=== PATIENT | male | born 1965 | race Caucasian/White ===

== ENCOUNTER 2019-02-14 23:15 | Emergency (ER) | payer MEDICAID ==
[2019-02-14 23:27] VITALS: BP 145/96
--- NOTE | 2019-02-14 23:49 | ER Report ---
History and Physical Time Seen By MD: 23:40 Hx. of Stated Complaint: PT REPORTS BEING BLOATED FOR SEVERAL WEEKS. HPI/ROS CHIEF COMPLAINT: bloating HISTORY OF PRESENT ILLNESS: This is a 54 year old male. He has been having stomach bloating for weeks now. The last few months, has had bloating feeling off and on, seeming to worsen with distension as well. No real pain, but is uncomfortable. Lots of belching and gas. Normal bowels which are usually a little constipated. Has normal urination. No blood in urine or stool. Frequent acid reflux feelings. Normal breathing and no chest pain. Has no insurance and no doctor so has not been evaluated for this. No history of ulcer disease. No medication. The only other complaint that he has is a broken tooth upper right premolar that is irritated. Denies history of abdominal surgeries or colonoscopies. Allergies: Coded Allergies: No Known Drug Allergies (Unverified , 02/14/19) Home Meds Active Scripts Omeprazole (OMEPRAZOLE) 20 Mg Capsule.dr, 1 CAP PO BID, #28 CAP 0 Refills Prov:ONEYDA BLOOM MD 02/15/19 Amoxicillin (AMOXICILLIN) 500 Mg Capsule, 2 CAP PO BID, #56 CAPSULE 0 Refills Prov:ONEYDA BLOOM MD 02/15/19 Clarithromycin (CLARITHROMYCIN) 500 Mg Tablet, 500 MG PO BID, #28 TAB 0 Refills Prov:ONEYDA BLOOM MD 02/15/19 Reviewed Nurses Notes: Yes Hx Substance Use Disorder: No Hx Alcohol Use: No Constitutional Vital Sign - Last 24 Hours 02/14/19 23:27 Temp 98.0 Pulse 73 Resp 16 B/P (MAP) 145/96 Pulse Ox 95 O2 Delivery Room Air Intake and Output 02/14/19 02/14/19 02/15/19 15:00 23:00 07:00 Intake Total 1000 ml Balance 1000 ml Physical Exam General Appearance: The patient is alert. No acute distress. Eyes: Pupils are equal, round. No pallor, injection or icterus. ENT: Mucous membranes are moist. Normal oral mucosa. Posterior oropharynx is normal. Broken tooth, right upper 1st premolar, scattered other dental caries. No gum redness or swelling. Neck: Supple and non tender. Respiratory: Lungs are clear to auscultation. Cardiovascular: Regular rate and rhythm. No murmurs, gallops or rubs. Normal capillary refill. Gastrointestinal: Abdomen is soft, distended, no tenderness, but has discomfort in epigastric area. No rebound or guarding. No masses or organomegaly. Normal active bowel sounds. No costovertebral angle tenderness with percussion. Neurological: Alert and oriented x3. No focal neurologic deficits Skin: Warm and dry. No rashes. Musculoskeletal: Extremities are nontender. No tenderness in palpation of the cervical, thoracic and lumbar spine. DIFFERENTIAL DIAGNOSIS: After history and physical exam, differential diagnosis was considered for abdominal discomfort bloating with reflux and some heartburn type symptoms. Medical Decision Making Data Points Result Diagram: 02/15/19 0015 02/15/19 0015 Laboratory Hematology Test 02/15/19 00:15 Red Blood Count 4.89 M/uL (4.00-5.60) Mean Corpuscular Volume 89.8 fL (80.0-96.0) Mean Corpuscular Hemoglobin 30.9 pg (26.0-33.0) Mean Corpuscular Hemoglobin Concent 34.4 g/dL (32.0-36.0) Red Cell Distribution Width 14.2 % (11.5-14.5) Mean Platelet Volume 10.3 fL (7.2-11.1) Neutrophils (%) (Auto) 33.7 % (39.4-72.5) Lymphocytes (%) (Auto) 55.6 % (17.6-49.6) Monocytes (%) (Auto) 8.4 % (4.1-12.4) Eosinophils (%) (Auto) 1.9 % (0.4-6.7) Basophils (%) (Auto) 0.4 % (0.3-1.4) Nucleated RBC Relative Count (auto) 0.1 /100WBC Neutrophils # (Auto) 2.6 K/uL (2.0-7.4) Lymphocytes # (Auto) 4.3 K/uL (1.3-3.6) Monocytes # (Auto) 0.7 K/uL (0.3-1.0) Eosinophils # (Auto) 0.1 K/uL (0.0-0.5) Basophils # (Auto) 0.0 K/uL (0.0-0.1) Nucleated RBC Absolute Count (auto) 0.00 K/uL Sodium Level 140 mmol/L (137-145) Potassium Level 3.7 mmol/L (3.5-5.0) Chloride Level 108 mmol/L (98-107) Carbon Dioxide Level 27 mmol/L (22-30) Blood Urea Nitrogen 16 mg/dl (9-21) Creatinine 1.00 mg/dl (0.66-1.25) Glomerular Filtration Rate Calc > 60.0 Random Glucose 89 mg/dl (75-110) Calcium Level 8.8 mg/dl (8.4-10.2) Total Bilirubin 0.2 mg/dl (0.2-1.3) Aspartate Amino Transf (AST/SGOT) 24 U/L (0-35) Alanine Aminotransferase (ALT/SGPT) 26 U/L (0-56) Alkaline Phosphatase 58 U/L (0-126) Total Protein 6.6 g/dl (6.3-8.2) Albumin 3.7 g/dl (3.5-5.0) Helicobacter pylori IgG Antibody Positive (NEGATIVE) Chemistry Test 02/15/19 00:15 White Blood Count 7.8 k/uL (4.5-11.0) Red Blood Count 4.89 M/uL (4.00-5.60) Hemoglobin 15.1 g/dL (14.0-18.0) Hematocrit 43.9 % (42.0-52.0) Mean Corpuscular Volume 89.8 fL (80.0-96.0) Mean Corpuscular Hemoglobin 30.9 pg (26.0-33.0) Mean Corpuscular Hemoglobin Concent 34.4 g/dL (32.0-36.0) Red Cell Distribution Width 14.2 % (11.5-14.5) Platelet Count 193 K/uL (150-450) Mean Platelet Volume 10.3 fL (7.2-11.1) Neutrophils (%) (Auto) 33.7 % (39.4-72.5) Lymphocytes (%) (Auto) 55.6 % (17.6-49.6) Monocytes (%) (Auto) 8.4 % (4.1-12.4) Eosinophils (%) (Auto) 1.9 % (0.4-6.7) Basophils (%) (Auto) 0.4 % (0.3-1.4) Nucleated RBC Relative Count (auto) 0.1 /100WBC Neutrophils # (Auto) 2.6 K/uL (2.0-7.4) Lymphocytes # (Auto) 4.3 K/uL (1.3-3.6) Monocytes # (Auto) 0.7 K/uL (0.3-1.0) Eosinophils # (Auto) 0.1 K/uL (0.0-0.5) Basophils # (Auto) 0.0 K/uL (0.0-0.1) Nucleated RBC Absolute Count (auto) 0.00 K/uL Glomerular Filtration Rate Calc > 60.0 Calcium Level 8.8 mg/dl (8.4-10.2) Total Bilirubin 0.2 mg/dl (0.2-1.3) Aspartate Amino Transf (AST/SGOT) 24 U/L (0-35) Alanine Aminotransferase (ALT/SGPT) 26 U/L (0-56) Alkaline Phosphatase 58 U/L (0-126) Total Protein 6.6 g/dl (6.3-8.2) Albumin 3.7 g/dl (3.5-5.0) Helicobacter pylori IgG Antibody Positive (NEGATIVE) EKG/Imaging Imaging COMPUTED TOMOGRAPHY ABDOMEN AND PELVIS WITH INTRAVENOUS CONTRAST DATE OF EXAM: 02/15/2019 12:00 AM INDICATION: Abdominal pain. COMPARISON: None. TECHNIQUE: Contrast enhanced abdomen and pelvis CT performed during the injection of 75 ml of Isovue 370. Sagittal and coronal reconstructions were performed. One of the following dose optimization techniques was utilized in the performance of this exam: Automated exposure control; adjustment of the mA and/or kV according to the patient's size; or use of an iterative reconstruction technique. Specific details can be referenced in the facility's radiology CT exam operational policy. FINDINGS: Lung bases: Calcified granuloma in the right base. Mild scarring/atelectasis. Liver and hepatic vasculature: There is an irregular heterogeneously hypoechoic hypoattenuating lesion in the periphery of the medial left lobe on image 33 series 2 measuring 3.6 x 2.8 cm. It has a suggestion of peripheral isoattenuating nodularity which could indicate that it is a hemangioma. Additional hypoattenuating lesion in the right lobe on image 44 measures 1.6 cm in diameter and also may have isoattenuating peripheral enhancement. A smaller more central and homogenously hypoattenuating lesion in the medial left lobe on image 38 measures 0.8 cm in diameter and likely represents a cyst or hemangioma.. Gallbladder and bile ducts: Normal. Spleen: Calcified granuloma. Pancreas: Normal. Adrenals: Normal. Kidneys, ureters and bladder: Probable 1.7 cm cyst in the medial aspect of the right kidney and 63 series 2. No acute abnormality or suspicious lesion. Retroperitoneum and aorta: Nonaneurysmal aorta with mild atherosclerosis. No adenopathy. GI tract, mesentery and peritoneum: Nonacute. Normal appendix. Prostate and seminal vesicles: Normal. Bones and soft tissues: Small fat-containing left inguinal hernia. No acute abnormality or suspicious lesion. IMPRESSION: 1. No apparent acute abnormality. 2. Two indeterminate liver lesions with the largest measuring 3.6 x 2.8 cm. These may represent hemangiomas, but nonemergent evaluation with liver mass protocol CT or MRI is recommended. 3. Remote granulomatous infection with calcified granulomas in the right lung base and spleen. Report Dictated By: Tim Schuster MD at 02/15/2019 12:49 AM ED Course/Re-evaluation Clinical Indication for ER IV: Hydration, IV Access ED Course Labs unremarkable other than H. pylori positive. A few indeterminate lesions in the liver and some calcified granulomas in the base of the lungs. I reviewed these other lesions with the patient and recommended that he follow-up with a that the [facility] or with the [facility]. Also recommended that he follow up with these places also to follow with the H. pylori treatment and recommended triple antibiotic therapy. He may not be able to afford this, and those clinics may be able to help with this. Gave him prescriptions for clarithromycin, amoxicillin, and omeprazole. Also gave him a dose of IV Protonix as well as a GI cocktail here which did seem to help improve symptoms. Decision to Disposition Date: February 15, 2019 Decision to Disposition Time: 01:36 Depart Departure Latest Vital Signs Vital Signs Date Time Temp Pulse Resp B/P (MAP) Pulse Ox O2 Delivery O2 Flow Rate FiO2 02/14/19 23:27 98.0 73 16 145/96 95 Room Air Impression: Primary Impression: H. pylori infection Condition: Improved Disposition: HOME OR SELF-CARE New Scripts Omeprazole (OMEPRAZOLE) 20 Mg Capsule.dr 1 CAP PO BID, #28 CAP 0 Refills Prov: ONEYDA BLOOM MD 02/15/19 Amoxicillin (AMOXICILLIN) 500 Mg Capsule 2 CAP PO BID, #56 CAPSULE 0 Refills Prov: ONEYDA BLOOM MD 02/15/19 Clarithromycin (CLARITHROMYCIN) 500 Mg Tablet 500 MG PO BID, #28 TAB 0 Refills Prov: ONEYDA BLOOM MD 02/15/19 Patient Instructions: Diet for Stomach Ulcers and Gastritis (ED), Helicobacter Pylori (ED) Additional Instructions: Please follow-up with either the [facility], or with the [facility] for further evaluation and treatment. We recommend the following triple drug therapy for H Pylori. 1. Amoxicillin 1000mg twice a day for 14 days. 2. Clarithromycin 500mg twice a day for 14 days. 3. Omeprazole 20mg twice a day for 14 days. Avoid any aspirin, NSAIDs (Ibuprofen, Motrin, Advil, Aleve, Naproxen), Coffee, Tea, Acidic foods, Spicy foods, or Chocolate. Follow-up with the clinic to discuss the areas in the base of your lungs that show evidence of old infections in the lungs. ONEYDA BLOOM MD February 14, 2019 23:49
[2019-02-15] MEDS ORDERED: NS(*) 0.9% 1000 ML BAG 1,000 ML IV ONE
[2019-02-15] MEDS ORDERED: IOPAMIDOL 76% 150 ML INFUS BTL 150 ML ONE (00:22)
--- NOTE | 2019-02-15 01:03 | RADIOLOGY IMAGING REPORT ---
FACILITY: [facility] [place] PATIENT NAME: Serafin Betancourt : 1965 MR: [id number] V: [id number] EXAM DATE: ORDERING PHYSICIAN: ONEYDA BLOOM TECHNOLOGIST: Location: [facility] Patient: Serafin Betancourt : 1965 Visit/Account:[id number] Date of Sevice: 02/15/2019 COMPUTED TOMOGRAPHY ABDOMEN AND PELVIS WITH INTRAVENOUS CONTRAST DATE OF EXAM: 02/15/2019 12:00 AM INDICATION: Abdominal pain. COMPARISON: None. TECHNIQUE: Contrast enhanced abdomen and pelvis CT performed during the injection of 75 ml of Isovue 370. Sagittal and coronal reconstructions were performed. One of the following dose optimization te chniques was utilized in the performance of this exam: Automated exposure control; adjustment of the mA and/or kV according to the patient's size; or use of an iterative reconstruction technique. Spec [facility] details can be referenced in the facility's radiology CT exam operational policy. FINDINGS: Lung bases: Calcified granuloma in the right base. Mild scarring/atelectasis. Liver and hepatic vasculature: There is an irregular heterogeneously hypoechoic hypoattenuating lesi on in the periphery of the medial left lobe on image 33 series 2 measuring 3.6 x 2.8 cm. It has a alfonso ggestion of peripheral isoattenuating nodularity which could indicate that it is a hemangioma. Addit ional hypoattenuating lesion in the right lobe on image 44 measures 1.6 cm in diameter and also may h ave isoattenuating peripheral enhancement. A smaller more central and homogenously hypoattenuating l esion in the medial left lobe on image 38 measures 0.8 cm in diameter and likely represents a cyst or hemangioma.. Gallbladder and bile ducts: Normal. Spleen: Calcified granuloma. Pancreas: Normal. Adrenals: Normal. Kidneys, ureters and bladder: Probable 1.7 cm cyst in the medial aspect of the right kidney and 63 s eries 2. No acute abnormality or suspicious lesion. Retroperitoneum and aorta: Nonaneurysmal aorta with mild atherosclerosis. No adenopathy. GI tract, mesentery and peritoneum: Nonacute. Normal appendix. Prostate and seminal vesicles: Normal. Bones and soft tissues: Small fat-containing left inguinal hernia. No acute abnormality or suspicio us lesion. IMPRESSION: 1. No apparent acute abnormality. 2. Two indeterminate liver lesions with the largest measuring 3.6 x 2.8 cm. These may represent hem angiomas, but nonemergent evaluation with liver mass protocol CT or MRI is recommended. 3. Remote granulomatous infection with calcified granulomas in the right lung base and spleen. Report Dictated By: Tim Schuster MD at 02/15/2019 12:49 AM Report E-Signed By: Tim Schuster MD at 02/15/2019 12:59 AM WSN:[id number]
[2019-02-15 01:09] LABS: PLATELET COUNT, AUTOMATED 193 K/uL (150-450)
[2019-02-15] MEDS ORDERED: LIDOCAINE 2% VISC SLN 15ML UDC PO ONE (01:35)
[2019-02-15] MEDS ORDERED: PANTOPRAZOLE SOD 40 MG IV VIAL IVP ONE (01:35)
[2019-02-15] MEDS ORDERED: ATRO/SCOPOL/HYOSCY/PB 5 ML ELX PO ONE (01:35)
[2019-02-15] MEDS ORDERED: MAG HYD/AL HYD/SIMETH 30ML UDC PO ONE (01:35)
[2019-02-15] MEDS ORDERED: AMOX-362 PO (01:43)
[2019-02-15] MEDS ORDERED: OMEP-125 PO (01:43)
[2019-02-15] MEDS ORDERED: CLAR-1 PO (01:43)
== END 2019-02-15 02:05 | disposition home or self-care (01) ==
LOC: ER 23:50
DX: A04.8 Other specified bacterial intestinal infections (principal)
CPT/HCPCS: 74177; 81001; 85025; 86677; 96361; 96374; 99284; C9113; J7030; Q9967; 82040; 82247; 82310; 82374; 82435; 82565; 82947; 84075; 84132; 84155; 84295; 84450; 84460; 84520